=== PATIENT | female | born 1960 | race American Indian/Alaskan Native ===

== ENCOUNTER 2016-06-16 21:34 | Emergency (ER) | payer MEDICARE, OTHER ==
[2016-06-16] MEDS ORDERED: Albuterol-Ipratrop 3 mg / 0.5 (3 ml) UD INH STA (22:14)
[2016-06-16] MEDS ORDERED: Albuterol-Ipratrop 3 mg / 0.5 (3 ml) UD ONE (22:31)
--- NOTE | 2016-06-16 23:29 | C.PDOC ---
History Of Present Illness 56 year old female presents to the ED with complaints of productive cough, wheezing, SOB, and pleuritic pain for 2 days. Patient states she has been using her nebulizer at home with minimal relief. She denies fever, abdominal pain, nausea, vomiting, diarrhea, palpitations., Time Seen by Provider: 06/16/16 22:00 Chief Complaint (Nursing): Cough, Cold, Congestion History Per: Patient History/Exam Limitations: no limitations Onset/Duration Of Symptoms: Days Current Symptoms Are (Timing): Still Present Current Respiratory Medications: See Home Med List Severity: Mild Associated Symptoms: Productive Cough Past Medical History Reviewed: Historical Data, Nursing Documentation, Vital Signs Vital Signs: Last Vital Signs Temp 98.8 F 06/17/16 00:03 Pulse 96 H 06/17/16 00:03 Resp 20 06/17/16 00:03 BP 133/79 06/17/16 00:03 Pulse Ox 95 07/02/16 01:09 - Medical History PMH: No Chronic Diseases - [facility] Procedures CONTR ABD ARTERIOGRM NEC (01/20/12) CONTRAST AORTOGRAM (01/20/12) CONTRAST ARTERIOGRAM-LEG (01/20/12) Family History: States: No Known Family Hx - Social History Hx Alcohol Use: Yes Hx Substance Use: Yes (IN PAST NOT IN LAST 24 HRS) Review Of Systems Except As Marked, All Systems Reviewed And Found Negative. Constitutional: Negative for: Fever, Chills Cardiovascular: Negative for: Chest Pain, Palpitations Respiratory: Positive for: Cough, Shortness of Breath, Pleuritic Pain, Sputum, Wheezing Gastrointestinal: Negative for: Nausea, Vomiting, Abdominal Pain, Diarrhea Genitourinary: Negative for: Dysuria, Hematuria Skin: Negative for: Rash Physical Exam - Physical Exam Appears: Well, Non-toxic, No Acute Distress, Other (+Speaking in full sentences) Skin: Normal Color, Warm, Dry, No Rash Head: Normacephalic Eye(s): bilateral: Normal Inspection Oral Mucosa: Moist Chest: Symmetrical, No Deformity, No Tenderness Cardiovascular: Rhythm Regular Respiratory: No Accessory Muscle Use, No Rales, No Rhonchi, Wheezing (+Mild expiratory wheezing B/L) Gastrointestinal/Abdominal: Normal Exam, Bowel Sounds, Soft, No Tenderness Extremity: Normal ROM, No Pedal Edema, No Calf Tenderness, No Deformity Neurological/Psych: Oriented x3 ED Course And Treatment ECG: Interpreted By Me, Viewed By Me ECG Rhythm: Sinus Rhythm ECG Interpretation: Normal Interpretation Of ECG: Normal axis. No acute ST/T wave changes. Rate From EC (bpm) O2 Sat by Pulse Oximetry: 95 (Room air) Pulse Ox Interpretation: Normal Progress Note: CXR ordered and reviewed. EKG done at triage. Patient treated with DuoNeb treatment, PO Naprosyn, and PO Prednisone. Reevaluation Time: 00:00 Reassessment Condition: Improved (Patient reassessed, states she is feeling better. On exam, she has good air entry B/L without wheezing or accessory muscle use. CXR and EKG unremarkable. POx is 98-100% on RA. Patient given Rxs for albuterol inhaler, naprosyn and tessalon. She was instructed to follow up with PMD/clinic in 1-2 days, and understands she should return to ED if symptoms worsen.) Disposition Counseled Patient/Family Regarding: Studies Performed, Diagnosis, Need For Followup, Rx Given - Disposition Referrals: Salbador Hawkins MD [Staff Provider] - Disposition: HOME/ ROUTINE Disposition Time: 00:00 Condition: STABLE Additional Instructions: FOLLOW UP WITH YOUR DOCTOR IN 1-2 DAYS USE MEDICATIONS DIRECTED RETURN TO ER IF SYMPTOMS WORSEN Prescriptions: Naproxen [Naprosyn Tab] 375 mg PO BID PRN #20 tab PRN Reason: pain Benzonatate [Tessalon Perles] 100 mg PO BID PRN #15 sgl PRN Reason: Cough Albuterol HFA [Ventolin HFA 90 mcg/actuation (8 g)] 0.09 mg IH Q4 PRN #1 puff PRN Reason: Wheezing Instructions: Asthma (ED), Upper Respiratory Infection (ED), Viral Syndrome (ED ) Forms: General Discharge Instructions Print Language: INDONESIAN - Clinical Impression Clinical Impression: Asthma, Upper respiratory infection, Viral disease - Scribe Statement The provider has reviewed the documentation as recorded by the Scribe Scott Small. Provider Attestation: All medical record entries made by the Scribe were at my direction and personally dictated by me. I have reviewed the chart and agree that the record accurately reflects my personal performance of the history, physical exam, medical decision making, and the department course for this patient. I have also personally directed, reviewed, and agree with the discharge instructions and disposition.
[2016-06-16] MEDS ORDERED: Naproxen 550 mg Tab PO STA (23:32)
[2016-06-16] MEDS ORDERED: Naproxen 550 mg Tab PO ONE (23:53)
[2016-06-17 00:03] VITALS: BP 133/79; PULSE 96; RESP 20; TEMP 98.8
--- NOTE | 2016-06-17 10:12 | RAD ---
HISTORY: cough, pleuritic pain, sob COMPARISON: No prior. TECHNIQUE: Chest PA and lateral FINDINGS: LUNGS: No active pulmonary disease. PLEURA: No significant pleural effusion identified. No pneumothorax apparent. CARDIOVASCULAR: Normal. OSSEOUS STRUCTURES: No significant abnormalities. VISUALIZED UPPER ABDOMEN: Normal. OTHER FINDINGS: None. IMPRESSION: No active disease.
--- NOTE | 2016-06-30 19:02 | CARD ---
APPROVED REPORT EKG Measurement Heart [id number] <Conclusion> Normal sinus rhythm Possible Left atrial enlargement Septal infarct, age undetermined Abnormal ECG
[2016-07-02 00:41] VITALS: O2SAT 95
== END 2016-06-17 00:05 | disposition home or self-care (01) ==
LOC: EDSEX 21:34 → C.ER 21:34
DX: J06.9 Acute upper respiratory infection, unspecified (principal); J45.909 Unspecified asthma, uncomplicated

== ENCOUNTER 2017-03-07 08:58 | Day surgery (SDC) | payer MEDICARE, OTHER ==
[2017-03-07] MEDS ORDERED: ceFAZolin IV 2 gm in Dextrose 2 GM/50 ML BAG IVPB ONE (10:08)
[2017-03-07] MEDS ORDERED: Lidocaine 1% Inj (20ml) ONE (10:08)
[2017-03-07] MEDS ORDERED: Midazolam 2 MG/2 ML VIAL ONE (10:09)
[2017-03-07] MEDS ORDERED: Bupivacaine 0.5% Inj(30mL) ONE (10:09)
[2017-03-07] MEDS ORDERED: Propofol 10 mg/ml Inj (20 ML) ONE (10:12)
[2017-03-07] MEDS ORDERED: Sodium Chloride 0.9% 500 ML IV ONE (10:15)
[2017-03-07] MEDS ORDERED: Bacitracin 50,000 UNIT in Sodium Chloride 0.9% Irrig 1,000 ML IR SCH (10:15)
--- NOTE | 2017-03-07 11:15 | PCM.SURG1 ---
Surgeon's Initial Post Op Note - Surgeon's Notes Surgeon: Dr. Pippa DPM Pricing Specialist: Dr. Ariadna Encarnacion DPM PGY-2 Anesthesia Administered By: Dr. Dionisio MD Pre-Operative Diagnosis: ingrown toenail hallux bilateral foot Operative Findings: see operative report Post-Operative Diagnosis: same Operation Performed: matrixectomy of medial and lateral nail border bilateral hallux Specimen/Specimens Removed: soft tissue hallux Estimated Blood Loss: EBL {In ML}: 2 Blood Products Given: N/A Drains Used: No Drains Post-Op Condition: Good Date of Surgery/Procedure: 03/07/17 Time of Surgery/Procedure: 10:30
[2017-03-07] MEDS ORDERED: HYDROmorphone 0.5 mg/0.5 ml ISec IVP PRN (11:19)
[2017-03-07 12:40] VITALS: TEMP 98.9
[2017-03-07 13:31] VITALS: BP 129/76; PULSE 86; RESP 20; O2SAT 96
--- NOTE | 2017-03-10 01:59 | OP ---
PROCEDURE DATE: 03/07/2017 SURGEON: Kranthi Ennis DPM TRAVEL ACCOMMODATIONS RATER: Troy Encarnacion DPM, PGY-2. PRECISION INSTRUMENT MAKER AND REPAIRER: Dr. Camejo. ANESTHESIA: MAC IV sedation with local. 03/07/2017PREOPERATIVE DIAGNOSES: 1. Left hallux ingrown toenail, medial and lateral border. 2. Right hallux ingrown toenail, medial and lateral border. POSTOPERATIVE DIAGNOSES: 1. Left hallux ingrown toenail, medial and lateral border. 2. Right hallux ingrown toenail, medial and lateral border. NAME OF PROCEDURES: 1. Left hallux partial nail matrixectomy of medial and lateral nail border with excision of nail matrix and nail bed. 2. Right hallux partial nail matrixectomy of medial and lateral nail border with excision of nail matrix and nail bed. INDICATIONS: The patient is a 57-year-old female with the above mentioned diagnoses. The patient has exhausted all conservative treatment measures at this time and now requests surgical intervention. The patient has signed the consent after careful explanation of all risks, benefits, complications, and alternatives for the surgical procedure. No guarantees were given nor implied. PREPARATION: The patient was brought into the operating room and placed on the operating room table in a supine position. A timeout was performed for identification of the correct patient and procedure. Attention was then drawn to the left hallux where 10 mL of a 1:1 mixture of 2% lidocaine plain and 0.5% Marcaine plain was administered in a standard hallux block fashion. Next, attention was then directed to the right hallux where 10 mL of a 1:1 mixture of 2% lidocaine plain with 0.5% Marcaine plain was administered in a standard hallux block fashion. The feet were then prepped and draped in the normal sterile manner and the procedure was begun. DESCRIPTION OF PROCEDURES: PROCEDURE #1: Left hallux partial nail matrixectomy of medial and lateral nail border with excision of nail matrix and nail bed. Attention was then turned to the medial border of the ingrown nail on the left hallux. Using a #15 blade, an elliptical incision was made down to the level of bone at the proximal medial nail margin. All underlying tissue including nail bed and nail matrix was excised and passed from the field. A curette was then used to ensure that all nail matrix was removed from the excision site. Attention was then turned to the lateral border of the ingrown toe nail on the left hallux. Using a fresh #15 blade, an elliptical incision was made down to the level of bone at the proximal medial nail margin. All underlying tissue including nail bed and nail matrix was excised and passed from the field. A curette was then used to ensure that all nail matrix was removed from the excision site. Utilizing *------*, the surgical sites were then copiously flushed with a mixture of normal saline and peroxide solution. A #3-0 nylon suture was then used to reapproximate the skin edges at the newly treated medial and lateral nail borders in an anatomically aligned fashion. The surgical site was then dressed with Xeroform, gauze, Wade and Azeem bandage. PROCEDURE #2: Right hallux partial nail matrixectomy at medial and lateral nail border with excision of nail matrix and nail bed. Attention was then turned to the medial border at the ingrown toenail on the right hallux. Using a fresh #15-blade, an elliptical incision was made down to the level of bone at the proximal medial nail margin. All underlying tissue including nail bed and nail matrix was excised and passed from the operative field. A curette was then used to ensure that all nail matrix was removed from the incision site. Attention was then turned to the lateral border of the ingrown nail of the right hallux. Using a fresh #15 blade, an elliptical incision was made down to the level of bone at the proximal medial nail margin. All underlying tissue including nail bed and nail matrix was excised and passed from the operative field. A curette was then used to ensure that all nail matrix was removed from the site. Utilizing a bulb syringe site was then copiously flushed with normal sterile saline and peroxide solution. A #3-0 nylon suture was then used to reapproximate the skin edges at the newly treated medial and lateral nail borders in an anatomically aligned fashion. The surgical site was then dressed with Xeroform, gauze, Wade and Azeem bandage. POSTOPERATIVE CONDITION: The patient tolerated the procedure and anesthesia well, and was escorted to the recovery room with vital signs stable and neurovascular status intact to the bilateral foot. The patient will be full weightbearing in the surgical shoe and will follow up with Dr. Ennis in his office as an outpatient. Dian Encarnacion DPM Kranthi Bean Landrum DPM LEEANNE
== END 2017-03-07 13:26 | disposition home or self-care (01) ==
LOC: C.SDS 08:58
PROVIDERS: ATTEND Podiatrist Foot Surgery
DX: M25.775 Osteophyte, left foot (principal)
CPT/HCPCS: 11750; 82948; 88305; 88311; J0690; J2250; J2704; J3010; J7040